=== PATIENT | male | born 1975 | race Caucasian/White ===

== ENCOUNTER 2023-08-09 16:51 | Emergency (ER) | payer BC ==
[2023-08-09] MEDS ORDERED: Metoclopramide HCl 10 MG (2 mL) VIAL ONE (17:37)
[2023-08-09] MEDS ORDERED: methylPREDNISolone Sod Succ/PF 125 MG/2 ML VIAL ONE (17:37)
[2023-08-09] MEDS ORDERED: diphenhydrAMINE 50 MG/ML VIAL ONE (17:37)
[2023-08-09] MEDS ORDERED: Ketorolac Tromethamine 30 MG (1 mL) VIAL ONE (17:38)
== END 2023-08-09 18:40 | disposition home or self-care (01) ==
LOC: CSHERS 16:51
DX: R51.9 Headache, unspecified (principal); I10 Essential (primary) hypertension; Z79.899 Other long term (current) drug therapy
CPT/HCPCS: 96365; 96375; J1200; J1885; J2765; J2930